=== PATIENT | female | born 1950 | race African-American/Black ===

== ENCOUNTER → 2018-06-27 | Day surgery (SDC) | payer OTHER ==
--- NOTE | 2018-06-27 10:27 | RAD REPORT ---
EXAM DESCRIPTION: Ultrasound-guided vacuum assisted right breast core biopsy CLINICAL HISTORY: Breast mass N63.10 COMPARISON: Follow Up Breast Axilla Comp dated 06/17/2018 FINDINGS: Informed consent was obtained and time-out was performed. The patient's right breast was prepped and draped in the usual sterile fashion. 1% lidocaine was used for local anesthetic purposes. Utilizing aseptic technique and ultrasound guidance, a 12 gauge vacuum assisted core biopsy device wa s used to obtain 2 core specimens through the mass of interest 9 o'clock position right breast. A pos t biopsy clip was then placed. All collected material was sent for cytology. Patient tolerated procedure well. IMPRESSION: Successful ultrasound guided vacuum assisted right breast mass biopsy.
== END ==
LOC: DS 09:10
PROVIDERS: ATTEND Internal Medicine
DX: C50.811 Malignant neoplasm of overlapping sites of right female breast (principal)
CPT/HCPCS: 19083; 88305

== ENCOUNTER 2018-07-24 06:21 | Day surgery (SDC) | payer OTHER ==
--- NOTE | 2018-07-22 10:32 | RAD REPORT ---
EXAM DESCRIPTION: RAD - Chest Pa And Lat (2 Views) - 07/22/2018 9:54 am CLINICAL HISTORY: preop Chest pain. COMPARISON: No comparisons FINDINGS: The lungs are clear. The heart is mildly enlarged size. No displaced fractures. IMPRESSION: Mild cardiomegaly.
[2018-07-22 10:43] LABS: Absolute Lymphocytes (CBC) 1.7 K/uL (0.7-4.9); Absolute Monocytes 0.4 K/uL (0.1-1.3); Absolute Neutrophil 2.3 K/uL (1.8-8.0); Basophils % 1.1 % (0-1.3); Eosinophils % 3.8 % (0-4.4); Lymphocytes % 36.5 % (15.3-44.8); MPV 9.1 fL (7.6-11.3); Monocytes % 9.4 % (3.3-12.3); RBC Red Blood Cell Count 5.64 M/uL (3.86-4.86)
[2018-07-22 10:45] LABS: Potassium 3.9 mmol/L (3.5-5.1)
--- NOTE | 2018-07-22 11:36 | EKG ---
Test Date: 2018-07-22 Test Time: 09:31:30 Senior Patient Account Representative: JAYDE MEASUREMENT RESULTS: Intervals: Rate: 62 MA: 162 QRSD: 80 QT: 434 QTc: 440 [place]: P: 43 MA: 162 QRS: 30 T: 45 INTERPRETIVE STATEMENTS: Normal sinus rhythm Normal ECG No previous ECG available for comparison Electronically Signed On 07-22-18 11:35:28 CDT by Lopez Beltran
[2018-07-24] MEDS ORDERED: CEFAZOLIN/SWI 1gm 1 GM/10 ML SYR ONE (06:57)
[2018-07-24] MEDS ORDERED: NA CHLORIDE 0.9% 1,000 ML ONE ×2 (06:57→11:12)
--- NOTE | 2018-07-24 08:20 | RAD REPORT ---
EXAM DESCRIPTION: NM - Lymphoscintigraphy - 07/24/2018 7:44 am CLINICAL HISTORY: Breast cancer TECHNIQUE: Four injections of 0.01 millicuries technetium filtered sulfur colloid administered into the the rochelle arerolar region of the right breast. The injections were placed at Twelve o'clock, 3 o'c lock, 6 o'clock and 9 o'clock positions. Subsequently a scintigram was obtained which demonstrated the radiotracer within these locations. IMPRESSION: Right breast lymphoscintigram
[2018-07-24] MEDS ORDERED: METHYLENE BLUE 0.5% 10 ML AMP ONE (09:01)
[2018-07-24] MEDS ORDERED: PROPOFOL 200 MG/20 ML VIAL IV ONE ×2 (09:10→10:36)
[2018-07-24] MEDS ORDERED: LIDOCAINE 1% MPF 5 ML VIAL ONE ×2 (09:10→09:11)
[2018-07-24] MEDS ORDERED: FENTANYL CITR 100 MCG/2 ML ONE ×2 (09:10→10:40)
[2018-07-24] MEDS ORDERED: MIDAZOLAM HCL 2 MG/2 ML INJ ONE (09:10)
--- NOTE | 2018-07-24 10:21 | RAD REPORT ---
EXAM DESCRIPTION: US - Brst,Preop NL Wire Init w/Guid - 07/24/2018 8:15 am CLINICAL HISTORY: Breast cancer COMPARISON: June 27, 2018 ultrasound TECHNIQUE: Skin and subcutaneous tissues anesthetized with lidocaine. Under sonographic guidance, a Kopan's hook wire was advanced into the 1 centimeter hypoechoic mass wi thin the outer right breast. IMPRESSION: Ultrasound-guided needle wire localization of a right breast mass
--- NOTE | 2018-07-24 10:38 | RAD REPORT ---
EXAM DESCRIPTION: US - Surgical Specimen - 07/24/2018 10:28 am CLINICAL HISTORY: Breast cancer FINDINGS: Ultrasound demonstrates that the 1 centimeter resected mass lies within the resected speci men
[2018-07-24] MEDS ORDERED: KETOROLAC 30 MG/ML INJ ONE (10:51)
[2018-07-24] MEDS ORDERED: ONDANSETRON 4 MG/2 ML VIAL ONE (10:52)
[2018-07-24] MEDS ORDERED: Mastisol Adhesive Liq ONE (10:58)
[2018-07-24] MEDS: HYDROMORPHONE HCL 1 MG/ML INJ ONE ×2 (11:19→11:26)
[2018-07-24] MEDS ORDERED: PROMETHAZINE 25 MG/ML VIAL ONE (11:30)
[2018-07-24 12:29] VITALS: TEMP 97.3; O2SAT 100
[2018-07-24] MEDS ORDERED: HYDROCODONE/APAP 7.5/325 MG TAB ONE (13:25)
[2018-07-24 15:08] VITALS: BP 184/79
--- NOTE | 2018-07-24 22:21 | OP ---
Date of Procedure: 07/24/2018 Surgeon: Stanford Owen MD [employer] Worker: TIFFANY Pearson. Preoperative Diagnosis: Right breast cancer. Postoperative Diagnosis: Right breast cancer. Procedure: Needle localization, right breast lumpectomy, and sentinel node biopsy. Estimated Blood Loss: Minimal. Specimen: [place] node negative for metastatic disease; right breast lumpectomy margins free of yazmin or. Findings: As above. Anesthesia: General. Complications: None. Disposition: The patient tolerated the procedure in stable condition and taken to Recovery in good g eneral condition. Description Of Procedure: The patient was brought to the OR and placed in supine position. General anesthesia was began. The patient had under sterile condition methylene blue injected around the nip ple areolar complex. Breast massaged, and then prepped and draped in usual sterile fashion. Then, a counter device was used to isolate the sentinel node in the right axilla. 3 cm incision made deep t o the subcutaneous tissue. A blue lymph node identified. All counts were recorded on the medical re cord and then vascular clips utilized and a large blue lymph node excised. The frozen section reveal ed no evidence of metastatic disease. Wound was irrigated. Bleeding controlled with cautery. A 3-0 chromic used to reapproximate subcutaneous tissue and close the skin. Then, a lumpectomy incision w as made, approximately a 6 x 4 cm incision, around the needle, and the subcutaneous tissues were divi ded and then core tissue at the tip of the needle excised, sent to Radiology, confirmation obtained. Pathology confirmed the margins to be free at least 1 cm in every direction. The wound was irrigate d. Bleeding controlled with cautery. 3-0 chromic was used to approximate subcutaneous tissue and cl ose the skin. Sterile dressing was applied. The patient was awakened and taken to Recovery in good general condition. /MODL Voice ID: [id number] Report ID: [id number]
--- NOTE | 2018-07-24 22:24 | DS ---
Date of Discharge: 07/24/2018 The patient will go to Day Surgery and home when stable. Disposition: Home. Condition: Stable. Discharge Instructions: Resume home medications and diet. Activity; as tolerated, no heavy lifting. Keep dressing clean and dry. Sponge bathe only. Follow up in my office in 1 week, call for appoin tment. Tylenol No. 3 one tablet p.o. q.4 h. p.r.n. pain, Keflex 500 mg p.o. q.6 h. /MODL Voice ID: [id number] Report ID: [id number]
== END 2018-07-24 13:55 | disposition home or self-care (01) ==
LOC: OR 06:21
PROVIDERS: ATTEND Surgery
PROC: 07B50ZX Excision of Right Axillary Lymphatic, Open Approach, Diagnostic (ICD-10-PCS; 2018-07-24)
PROC: 0HBT0ZZ Excision of Right Breast, Open Approach (ICD-10-PCS; principal; 2018-07-24 09:00)
DX: C50.511 Malignant neoplasm of lower-outer quadrant of right female breast (principal); C77.3 Secondary and unspecified malignant neoplasm of axilla and upper limb lymph nodes; Z17.0 Estrogen receptor positive status [ER+]; I51.7 Cardiomegaly
CPT/HCPCS: 19125; 38525; 93005; 85025; 80048; 36415; 82962 ×2; 88305; 88307; 71046; 76098; 19285; 78195; J2704 ×2; J2550; J2250; J3010 ×2; J1170; J0690; J7030 ×2; J2405; A9541; 88331

== ENCOUNTER 2023-05-10 07:47 | Day surgery (SDC) | payer OTHER ==
[2023-05-06 11:13] LABS: Absolute Eosinophils 0.1 K/uL (0-0.5); Absolute Lymphocytes (CBC) 0.8 K/uL (0.7-4.9); Absolute Monocytes 0.4 K/uL (0.1-1.3); Basophils % 0.2 % (0-1.3); Eosinophils % 2.7 % (0-4.4); Hemoglobin 10.9 g/dL (12.0-15.0); Lymphocytes % 25.3 % (15.3-44.8); MCH 23.1 pg (27.0-35.0); MCHC 32.1 g/dL (32.0-36.0); Monocytes % 11.1 % (3.3-12.3); Neutrophils % 60.7 % (41.7-73.7); Nucleated Red Blood Cells % 0.2 % (0-0); Platelets 256 thou/uL (152-406); RBC Red Blood Cell Count 4.73 M/uL (3.86-4.86); Red Cell Distribution Width 14.2 % (12.1-15.2)
[2023-05-06 11:19] LABS: PT Prothrombin Time 12.5 SECONDS (9.5-12.5); PTT, Activated Partial Thromb 33.6 SECONDS (24.3-36.9); Protime INR 1.14
[2023-05-06 11:27] LABS: Anion Gap 9.9 mEq/L (5.0-15.0); Potassium 3.9 mEq/L (3.5-5.1)
--- NOTE | 2023-05-06 14:24 | EKG ---
Test Date: 2023-05-06 Test Time: 10:30:38 Motor Teacher: CARLOS MEASUREMENT RESULTS: Intervals: Rate: 89 WI: 154 QRSD: 72 QT: 352 QTc: 428 [place]: P: 43 WI: 154 QRS: 22 T: 49 INTERPRETIVE STATEMENTS: Normal sinus rhythm Normal ECG Compared to ECG 07/22/2018 09:31:30 No significant changes Electronically Signed On 05-06-23 14:23:29 CDT by Sridhar Kapoor
[2023-05-10] MEDS ORDERED: OXYMETAZOLINE HCL 0.05% 15ML NAS ONE (08:04)
[2023-05-10] MEDS: NA CHLORIDE 0.9% 1,000 ML ONE (08:20)
[2023-05-10] MEDS: KETOROLAC 30 MG/ML INJ ONE (09:20)
[2023-05-10] MEDS ORDERED: LIDOCAINE 1% MPF 5 ML VIAL ONE (09:50)
[2023-05-10] MEDS ORDERED: FENTANYL CITR 100 MCG/2 ML ONE (09:50)
[2023-05-10] MEDS ORDERED: ROCURONIUM 50 MG/5 ML VIAL IV ONE (09:50)
[2023-05-10] MEDS ORDERED: propofoL 200 MG/20 ML VIAL IV ONE (09:50)
[2023-05-10] MEDS ORDERED: dexAMETHasone 10 MG/ML VIAL ONE (09:50)
[2023-05-10] MEDS ORDERED: ONDANSETRON 4 MG/2 ML VIAL ONE (09:50)
[2023-05-10] MEDS: OFLOXACIN OPH 0.3%-5 ML BTL ONE (10:35)
[2023-05-10] MEDS: LIDOCAINE HCL/EPINEPHRINE 20 ML MDV ONE (10:41)
[2023-05-10] MEDS: OXYMETAZOLINE HCL 0.05% 15ML NAS ONE (10:41)
--- NOTE | 2023-05-10 11:11 | P.OP ---
Eap Specialist: NONE,NONE Preoperative diagnosis: nasopharyngeal tumor, left otitis media Postoperative diagnosis: same Primary procedure: left tympanostomy tube placement Secondary procedure: nasal endoscopy with nasopharyngeal biopsy Anesthesia: general Estimated blood loss: 10ml Specimen: left nasopharyngeal tumor Findings: extensive tumor of posterior [employer] wall, roof & extending laterally to both ET Operative Technique: The patient was brought to the operating room and placed under general anesthesia. The bilateral nasal cavity was packed with Afrin-soaked nasal pledgets. Attention was turned to the left ear. The left ear was examined under an operating microscope with aid of an ear speculum. A small amount of cerumen was removed using a wire loop. The left eardrum was examined and appeared intact with no evidence of retraction but a serous appearing middle ear fluid. A radial incision was made in the anterior-inferior quadrant of the eardrum and serous fluid was suctioned from the middle ear. There was no evidence of significant pulsations or other sign of intracranial connection. A Naik T-tube was positioned across the incision using an alligator forcep and pick. This portion of the procedure was concluded and attention was turned to the nose. The head of bed was turned 90 degrees and the previously placed nasal pledgets were removed. A 0 degree rigid endoscope was used to perform a nasal endoscopy. The left septum, inferior turbinate, middle turbinate and middle meatus appeared unremarkable. Scant amount of clear mucus was suctioned from the nasal cavity. The left sphenoethmoid recess was completely obstructed with a hypervascular appearing irregular tumor. This tumor extended into the cindy opharynx and appeared to involve the posterior cushion of the left eustachian tube. The posterior wall of the nasopharynx appeared to be completely involved with the tumor as well. It was difficult to appreciate the inferior most extent of the tumor as the patient's soft palate was abutting the lower nasopharyngeal wall. Photodocumentation was obtained. The rigid 0 degree endoscope was then passed through the right nostril. The right septum, inferior turbinate, inferior meatus, middle turbinate and middle meatus all appeared unremarkable. The right sphenoethmoid recess appeared clear from bulky tumor but tumor did appear to involve the roof posterior and lateral wall of the nasopharynx with extension onto the posterior cushion of the right eustachian tube. Photodocumentation was obtained. A 45 degree [place] was used under endoscopic guidance to obtain sample from the left nasopharynx/sphenoethmoid recess with 2 fragments collected. Expected degree of bleeding ensued and the area was packed with Afrin-soaked pledgets for several minutes. After removal there was mild persistent oozing and additional packing was placed. After several more minutes, the packing was removed and the nasal cavity and nasopharynx were thoroughly irrigated with saline. After suctioning there was mild persistent oozing and additional packing was applied over the biopsy site. After several minutes these were removed and the area appeared hemostatic. An additional and final thorough irrigation with saline was performed. After suctioning the area appeared hemostatic and photodocumentation was obtained. The procedure was then concluded and the patient was returned to care of anesthesia for awakening extubation in the operating room which proceeded without difficulty. Complications: None Implants: Left naik T tube Fluids & blood products: see anesthesia record Transferred to: Recovery Room Condition: Good
[2023-05-10 11:33] VITALS: O2SAT 100
[2023-05-10] MEDS ORDERED: OFLOXACIN OPH 0.3%-5 ML BTL ONE (13:01)
[2023-05-10 13:56] VITALS: BP 147/76; TEMP 96.9
== END 2023-05-10 13:00 | disposition home or self-care (01) ==
LOC: OR 07:47
PROVIDERS: ATTEND Otolaryngology
PROC: 099670Z Drainage of Left Middle Ear with Drainage Device, Via Natural or Artificial Opening (ICD-10-PCS; principal; 2023-05-10 09:00)
PROC: 09BN8ZX Excision of Nasopharynx, Via Natural or Artificial Opening Endoscopic, Diagnostic (ICD-10-PCS; 2023-05-10 09:00)
DX: C11.8 Malignant neoplasm of overlapping sites of nasopharynx (principal); H66.92 Otitis media, unspecified, left ear
CPT/HCPCS: 69421; 42999; 93005; 85025; 80048; 36415; 85610; 82947 ×2; 88305; 85730; J2704; J2001; J3010; J1100; J2405; J7030; 88304